=== PATIENT | female | born 2000 | race Hispanic/Latino ===

== ENCOUNTER 2021-07-19 16:36 | Day surgery (SDC) | payer OTHER ==
[2021-07-19 17:30] VITALS: BMI 41.7
[2021-07-19] MEDS ORDERED: Lorazepam 2 MG/ML VIAL SLOW IVP PRN (18:12)
[2021-07-19] MEDS ORDERED: Labetalol HCl 100 MG/20 ML VIAL SLOW IVP PRN (18:12)
[2021-07-19] MEDS ORDERED: hydrALAZINE 20 MG/ML VIAL SLOW IVP PRN (18:12)
[2021-07-19 18:40] LABS: Creatinine, Urine 41.59 mg/dL (47-110)
[2021-07-19 18:56] LABS: #Eosinphils 0.1 10x3/uL (0.0-0.5); #Monocytes 0.8 10x3/uL (0.0-1.1); #Neutrophils 5.6 10x3/uL (1.5-8.4); %Basophils 0.2 % (0.0-2.0); %Eosinophils 1.3 % (0.0-6.0); %Lymphocytes 33.4 % (18.0-47.0); %Monocytes 8.1 % (0.0-10.0); %Neutrophils 56.7 % (40.0-75.0); Hemoglobin 12.8 g/dL (12.0-15.5); Mean Corpuscular HGB CONC 34.4 g/dL (32.0-36.0); Mean Corpuscular Hemoglobin 30.9 pg (27.0-33.0); Mean Corpuscular Volume 89.9 fl (81.6-98.3); Mean Platelet Volume 9.6 fl (7.4-10.4); Platelet Count 288 10x3/uL (150-450); RBC Distribution Width 12.7 % (11.5-14.5); Red Blood Cell (RBC) Count 4.14 10x6/uL (3.90-5.03); White Blood Cell (WBC) Count 9.9 10x3/uL (3.5-10.5)
[2021-07-19 19:10] LABS: ALT (SGPT) 10 U/L (8-55); AST (SGOT) 18 U/L (5-34); Albumin 3.3 g/dL (3.5-5.0); Alkaline Phosphatase 192 U/L (40-110); Anion Gap 12 mmol/L (10-20); BUN (Urea Nitrogen) 7 mg/dL (7.0-18.7); Bilirubin, Total 0.3 mg/dL (0.2-1.2); Calc. Creatinine Clearance 229 mL/min (70-130); Calcium 9.4 mg/dL (7.8-10.44); Carbon Dioxide 24 mmol/L (22-29); Chloride 107 mmol/L (98-107); Globulin 3.2 g/dL (2.4-3.5); Glucose 99 mg/dL (70-105); Potassium 4.2 mmol/L (3.5-5.1); Protein, Total 6.5 g/dL (6.0-8.3); Sodium 139 mmol/L (136-145)
== END 2021-07-19 20:15 | disposition home or self-care (01) ==
LOC: CSHLD/OP 16:36
PROVIDERS: ATTEND Obstetrics & Gynecology
DX: O13.3 Gestational [pregnancy-induced] hypertension without significant proteinuria, third trimester (principal); Z3A.37 37 weeks gestation of pregnancy; Z88.0 Allergy status to penicillin
CPT/HCPCS: 80053; 82570; 84156; 85025

== ENCOUNTER 2021-07-23 17:30 | Inpatient (IN) | payer OTHER ==
[2021-07-23 19:39] LABS: #Eosinphils 0.1 10x3/uL (0.0-0.5); #Neutrophils 6.4 10x3/uL (1.5-8.4); %Basophils 0.2 % (0.0-2.0); %Eosinophils 1.1 % (0.0-6.0); %Lymphocytes 30.7 % (18.0-47.0); %Monocytes 9.2 % (0.0-10.0); %Neutrophils 58.4 % (40.0-75.0); Hemoglobin 11.8 g/dL (12.0-15.5); Mean Corpuscular HGB CONC 33.8 g/dL (32.0-36.0); Mean Corpuscular Hemoglobin 30.7 pg (27.0-33.0); Mean Corpuscular Volume 90.9 fl (81.6-98.3); Mean Platelet Volume 9.7 fl (7.4-10.4); Platelet Count 284 10x3/uL (150-450); RBC Distribution Width 12.8 % (11.5-14.5); Red Blood Cell (RBC) Count 3.84 10x6/uL (3.90-5.03); White Blood Cell (WBC) Count 10.9 10x3/uL (3.5-10.5)
[2021-07-23 19:47] LABS: ALT (SGPT) 10 U/L (8-55); AST (SGOT) 17 U/L (5-34); Albumin 3.1 g/dL (3.5-5.0); Alkaline Phosphatase 172 U/L (40-110); Anion Gap 13 mmol/L (10-20); BUN (Urea Nitrogen) 7 mg/dL (7.0-18.7); Bilirubin, Total 0.3 mg/dL (0.2-1.2); Calc. Creatinine Clearance 0 mL/min (70-130); Calcium 8.6 mg/dL (7.8-10.44); Carbon Dioxide 24 mmol/L (22-29); Chloride 106 mmol/L (98-107); Globulin 3.4 g/dL (2.4-3.5); Glucose 113 mg/dL (70-105); Protein, Total 6.5 g/dL (6.0-8.3); Sodium 139 mmol/L (136-145); Uric Acid 6.9 mg/dL (2.6-6.0)
[2021-07-23] MEDS ORDERED: Acetaminophen 325 MG TAB PO PRN (21:10)
[2021-07-24] MEDS ORDERED: hydrALAZINE 20 MG/ML VIAL SLOW IVP PRN ×2 (07:52→17:00)
[2021-07-24] MEDS ORDERED: Butorphanol Tartrate 1 MG/ML VIAL SLOW IVP PRN (07:52)
[2021-07-24] MEDS ORDERED: Promethazine HCl 25 MG/ML VIAL IM PRN (07:52)
[2021-07-24] MEDS ORDERED: Ondansetron PF 4 MG/2 ML Vial IVP PRN (07:52)
[2021-07-24] MEDS ORDERED: Lidocaine 1% (PF) 30 ML VIAL SC PRN (07:53)
[2021-07-24] MEDS ORDERED: Ibuprofen 800 MG TAB PO PRN (07:53)
[2021-07-24] MEDS ORDERED: Carboprost 250 MCG/ML AMP IM PRN (07:53)
[2021-07-24] MEDS ORDERED: Misoprostol 200 MCG TAB PR PRN (07:53)
[2021-07-24] MEDS ORDERED: NS w/ Oxytocin 30 units 500 ML IV SCH ×2 (08:00)
[2021-07-24] MEDS: Lactated Ringer's 1,000 ML IV SCH ×3 (09:13→16:30)
[2021-07-24 09:16] VITALS: BMI 41.7
[2021-07-24 10:01] LABS: Hemoglobin 12.8 g/dL (12.0-15.5); Mean Corpuscular HGB CONC 34.5 g/dL (32.0-36.0); Mean Corpuscular Hemoglobin 31.2 pg (27.0-33.0); Mean Corpuscular Volume 90.5 fl (81.6-98.3); Mean Platelet Volume 9.7 fl (7.4-10.4); Platelet Count 278 10x3/uL (150-450); White Blood Cell (WBC) Count 10.3 10x3/uL (3.5-10.5)
[2021-07-24 10:35] LABS: Hep B Surf Ag Non-Reactive S/CO (NonReactive)
[2021-07-24 10:36] LABS: Syphilis Antibody Nonreactive (Nonreactive); Syphilis Antibody Index 0.02 S/CO (<1.00 Non-Reactive)
[2021-07-24 10:39] LABS: HBSAg Index 0.16 S/CO (0-0.99)
[2021-07-24 12:51] LABS: SARS-CoV-2 NAA Rapid Test Not Detected (NotDetected)
[2021-07-24] MEDS ORDERED: Fentanyl 2 mcg/Bup 0.1% Cadd 100 ML ONE (16:32)
[2021-07-24] MEDS ORDERED: diphenhydrAMINE 25 MG CAP PO PRN (17:00)
[2021-07-24] MEDS ORDERED: Lanolin Ointment 7 GM TUBE TOP PRN (17:00)
[2021-07-24] MEDS ORDERED: Benzocaine-Menthol 82.5 ML CAN TOP PRN (17:00)
[2021-07-24] MEDS ORDERED: Bisacodyl 10 MG SUPP PR PRN (17:00)
[2021-07-24] MEDS ORDERED: Milk Of Magnesia 30 ML UDCUP PO PRN (17:00)
[2021-07-24] MEDS ORDERED: Preparation H Ointment 28 GM TUBE PR PRN (17:00)
[2021-07-24] MEDS: Ibuprofen 800 MG TAB PO SCH (23:57)
[2021-07-24] MEDS: Docusate 100 MG CAP PO SCH (23:57)
[2021-07-25] MEDS: Ibuprofen 800 MG TAB PO SCH ×2 (05:35→13:34)
[2021-07-25 07:57] VITALS: TEMP 97.9
[2021-07-25] MEDS ORDERED: Ferrous Sulfate 325 MG TAB PO SCH (08:00)
[2021-07-25] MEDS: Docusate 100 MG CAP PO SCH (08:49)
[2021-07-25] MEDS ORDERED: Prenatal Vitamin 1 TAB PO SCH (09:00)
[2021-07-25] MEDS ORDERED: Boostrix 0.5 ML (Tdap) VIAL IM ONE (17:00)
[2021-07-25 17:40] VITALS: BP 112/62
== END 2021-07-25 18:55 | disposition home or self-care (01) | DRG 807 ==
LOC: CSHLD/OP 17:30 → CSHLD 07-24 09:03 → CSHPED 07-24 19:37
PROVIDERS: ADMIT Obstetrics & Gynecology; ATTEND Obstetrics & Gynecology
PROC: 10E0XZZ Delivery of Products of Conception, External Approach (ICD-10-PCS; principal; 2021-07-24)
PROC: 3E033VJ Introduction of Other Hormone into Peripheral Vein, Percutaneous Approach (ICD-10-PCS; 2021-07-24)
PROC: 10907ZC Drainage of Amniotic Fluid, Therapeutic from Products of Conception, Via Natural or Artificial Opening (ICD-10-PCS; 2021-07-24)
PROC: 10H07YZ Insertion of Other Device into Products of Conception, Via Natural or Artificial Opening (ICD-10-PCS; 2021-07-24)
DX: O14.94 Unspecified pre-eclampsia, complicating childbirth (principal); Z37.0 Single live birth; Z3A.38 38 weeks gestation of pregnancy; Z20.822 Contact with and (suspected) exposure to COVID-19; Z88.1 Allergy status to other antibiotic agents
CPT/HCPCS: 36415; 76815; 80053; 84550; 85025; 85027; 86780; 86850; 86900; 86901; 87340; 99285; J2590; J7120; U0002